=== PATIENT | male | born 1985 | race Caucasian/White ===

== ENCOUNTER 2019-05-14 11:36 | Emergency (ER) | payer OTHER ==
[~2019-05-14] VITALS: Ht 175.3 cm; Wt 72.0 kg
[2019-05-14 11:38] VITALS: BP 128/80
--- NOTE | 2019-05-14 11:41 | NUR ---
TASK RN NOTE: PT TRIAGED, PRESENTS TO ED SEEKING LABWORK AFTER AN INMATE SPIT IN HIS FACE AT WORK. PER PT, THE INMATE IS KNOWN TO BE HIV, HEP B AND HEP C POSITIVE. PT DENIES ANY SYMPTOMS, DENIES ANY INJURY S/P INCIDENT. AWAITING PROVIDER AND ORDERS, REPORT GIVEN TO PRIMARY RN [place].
[2019-05-14 12:32] LABS: ALANINE AMINOTRANSFERASE 28 U/L (12-78); ALBUMIN 4.3 g/dL (3.4-5.0); ANION GAP 8 mmol/L (5-15); CALCIUM 9.1 mg/dL (8.5-10.1); CHLORIDE 106 mmol/L (98-107); CREATININE 0.88 mg/dL (0.7-1.3)
[2019-05-14 12:34] LABS: ALKALINE PHOSPHATASE 65 U/L (45-117); BILIRUBIN,TOTAL 0.7 mg/dL (0.2-1.0); TOTAL PROTEIN 7.4 g/dL (6.4-8.2)
== END 2019-05-14 12:55 | disposition home or self-care (01) ==
LOC: ED 12:09
DX: Z21 Asymptomatic human immunodeficiency virus [HIV] infection status (principal); B19.9 Unspecified viral hepatitis without hepatic coma
CPT/HCPCS: 36415; 80053; 80074; 87806; 99283; G0475